=== PATIENT | male | born 1990 | race Caucasian/White ===

== ENCOUNTER 2021-09-04 10:38 | Emergency (ER) | payer OTHER, SELFPAY ==
[2021-09-04 10:54] VITALS: BP 130/64; PULSE 69; RESP 18; O2SAT 95; BMI 30.6
[2021-09-04 10:57] VITALS: BP 130/64; PULSE 82; RESP 18; O2SAT 97
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
[2021-09-04] MEDS: acetaminophen 500 mg Tablet PO (11:31)
[2021-09-04 12:54] VITALS: BP 115/84; PULSE 62; RESP 18; O2SAT 100
== END 2021-09-04 12:55 | disposition home or self-care (01) ==
PROVIDERS: Emergency Provider Emergency Medicine
DX: S00.83XA Contusion of other part of head, initial encounter (principal); V49.49XA Driver injured in collision with other motor vehicles in traffic accident, initial encounter
CPT/HCPCS: 70450; 70486; 99283

== ENCOUNTER 2022-11-09 15:18 | Emergency (ER) | payer SELFPAY ==
[2022-11-09 15:24] VITALS: BP 130/84; PULSE 61; RESP 16; TEMP 36.7; O2SAT 96; BMI 26.9
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
--- NOTE | 2022-11-09 15:37 | ED_ITS ---
HPI - Fall General: Chief Complaint: Fall Stated Complaint: fell from canoe trailer to concrete(head inj) Time Seen by Provider: 11/09/22 15:20 Source: patient Mode of arrival: ambulatory Limitations: no limitations History of Present Illness: Patient is a nice 31-year-old male who presents to ED today for evaluation following a head injury. Patient states he was loading a canoe trailer and was on the top rack when he accidentally fell backwards and landed on his head onto concrete. He sustained a posterior scalp laceration. No LOC. He is complaining of head and neck pain. He arrives in a c-collar. Patient's tetanus is up-to-date. He is not complaining of any visual changes or nausea/vomiting. He denies any other injuries. He has been up and ambulatory since the injury without difficulty. MD complaint: fall Onset (ago): hour(s) Fall from: from height (distance) (6 feet) Fall witnessed: yes, by bystander Place fall occurred: work Loss of consciousness: None Prolonged down time: no Symptoms prior to fall: none Context: tripped/slipped Location of injury: head and neck Severity: moderate Associated symptoms-after fall: Reports headache(s) and neck pain; Denies chest pain, confusion or difficulty walking Review of Systems Eyes: Denies: change in vision, blurry vision, floaters or seeing flashes ENMT: Denies: ear discharge or nasal discharge Card: Denies: chest pain Resp: Denies: dyspnea GI: Denies: nausea or vomiting Musc: Reports: neck pain; Denies: back pain, extremity pain or joint pain Skin/Breast: Reports: other (scalp laceration) Neuro: Reports: headache(s); Denies: numbness in extremities, weakness in extremities, sensory changes, lack of coordination, difficulty walking, dizziness, confusion, behavioral changes, Slurred speech present, difficulty communicating thoughts or seizure-like activity PFS ED PFSH: Medical History No pertinent past medical history Social History Smoking and tobacco status: current every day smoker Alcohol intake: never Substance/Drug Use: never Physical Exam Const: COMMON NORMALS: no acute distress, average body habitus, patient oriented x3, no limitations, healthy appearing, alert and well nourished GENERAL APPEARANCE: cooperative ORIENTATION/CONSCIOUSNESS: Yes awake, Yes oriented to person, Yes oriented to place and Yes oriented to time HENMT: COMMON NORMALS: normocephalic HEAD & SCALP: normocephalic and lacera tion (large posterior scalp laceration (approx 6cm)-bleeding controlled) FACE & SINUS: normal facial exam Eye: GENERAL EYE: appearance normal, both eyes and all related structures and normal light reflex DIRECT OPHTHALMOSCOPY: Yes normal light reflex Neck/C-Spine: CERVICAL SPINE: Yes Cervical spine tenderness OTHER: c-collar was already in place during my assessment; this was not removed for ROM testing Chest: COMMONS NORMALS: normal inspection of the chest and normal palpation of entire chest wall Resp: COMMON NORMALS: normal respiratory effort and clear to auscultation bilaterally AUSCULTATION: clear to auscultation bilaterally Cardio: COMMON NORMALS: regular rate and regular rhythm RATE: regular rate RHYTHM: regular rhythm Back/Pelvis: COMMON NORMALS: thoracic and lumbar spine normal to inspection, no thoracic nor lumbar tenderness and thoraco-lumbar ROM normal Extremity: COMMON NORMALS: normal to inspection GENERAL: Yes normal exam except as noted Neuro: RICKI COMA SCALE: document GCS findings [place] coma scale eye opening: Spontaneous Ricki coma scale verbal response: Orientated [place] coma scale motor response: Obey commands [place] coma scale total score: 15 COMMON NORMALS: patient oriented x3, CN's II-XII intact bilaterally, moves all extremities, no focal motor deficits, no sensory deficits noted and gait normal SENSORIUM/ORIENTATION: Yes alert, Yes oriented to person, Yes oriented to place and Yes oriented to time Skin: TRAUMA: laceration (scalp) Procedures Laceration Laceration 1: Site: scalp Size (cm): 7.0 Description: linear Depth: simple, single layer Local Anesthetic: lidocaine 1% Amount of anesthesia used (mL): 6.0 Pre-repair: wound explored and irrigated extensively Skin layer closed with: other (med) Number of sutures: 12 Course Vital Signs: Vital signs: Vital Signs Temperature 98.0 F 11/09/22 15:24 Pulse Rate 61 11/09/22 15:24 Respiratory Rate 16 11/09/22 15:24 Blood Pressure 130/84 11/09/22 15:24 Pulse Oximetry 96 11/09/22 15:24 Oxygen Delivery Me thod Room Air 11/09/22 15:24 MDM - Fall Medical Decision Making CTs negative. Wound repaired with med as documented. Wound care/infection precautions/return to ED instructions all discussed with patient. Lab Data Radiology Impressions Cervical Spine CT 11/09/22 15:36 IMPRESSION: No acute findings. Head CT 11/09/22 15:36 IMPRESSION: 1. There is a right posterior parietal scalp hematoma with overlying skin lacerations. 2. No evidence for acute intracranial hemorrhage. 3. Paranasal sinusitis and right mastoiditis changes. Discharge Plan Discharge Patient Disposition: Home Clinical Impression: Fall Qualifiers: Encounter type: initial encounter Qualified Code(s): W19.XXXA - Unspecified fall, initial encounter Laceration of scalp Qualifiers: Encounter type: initial encounter Qualified Code(s): S01.01XA - Laceration without foreign body of scalp, initial encounter Minor head injury without loss of consciousness Qualifiers: Encounter type: initial encounter Qualified Code(s): S09.90XA - Unspecified injury of head, initial encounter Condition: Stable Prescriptions: No Action doxycycline hyclate 100 mg capsule 100 mg PO BID Qty: 14 0RF albuterol sulfate [Ventolin HFA] 90 mcg/actuation HFA aerosol inhaler 2 puff inhalation QID Qty: 6.7 0RF prednisone 20 mg tablet 40 mg PO DAILY 5 Days Qty: 10 0RF clotrimazole [Antifungal (clotrimazole)] 1 % cream 1 applic topical BID Qty: 30 0RF fluoxetine 40 mg capsule 40 mg PO QAM sildenafil 100 mg tablet 100 mg PO DAILY MDD 1 tab PRN (Reason: Erectile Dysfunction) ibuprofen 200 mg Tablet 200 mg PO Q4H PRN (Reason: Pain) Discharge Orders: Discharge ED (Routine); Ordered 11/09/22 Ordered By: Kavitha Matos Referrals: Naeem Garcia MD [Primary Care Provider] - Patient Instructions: Scalp Laceration, Head Injury (DC), Staple Care (ED) Activity Restrictions/Additional Instructions: Keep wound/laceration clean with warm soap and water twice daily. Monitor for signs of infection such as redness, swelling, increased pain, or drainage. Please seek medical re-evaluation if these occur. If you received sutures/med today these will need to be removed (unless you were told by the provider that they are absorbable). The provider should have discussed with you the length of time until removal-7 TO 10 DAYS. You may return to the emergency department for this service. Please seek medical re-evaluation for severe headache, repetitive episodes of vomiting, visual changes, altered mental status, seizures, severe tiredness or lethargy, or any other concerns you may have. Coding Level of Care Code ED Marine Railway Operator for Cindy Beard
[2022-11-09] MEDS: morphine 4 mg/mL SDV 1 mL IM (15:55)
[2022-11-09 17:14] VITALS: BP 130/84; PULSE 61; RESP 16; O2SAT 96
== END 2022-11-09 17:16 | disposition home or self-care (01) ==
PROVIDERS: Emergency Provider Physician Assistant; PCP Family Medicine
DX: S01.01XA Laceration without foreign body of scalp, initial encounter (principal); S09.8XXA Other specified injuries of head, initial encounter; F17.210 Nicotine dependence, cigarettes, uncomplicated; W17.89XA Other fall from one level to another, initial encounter
CPT/HCPCS: 12002; 70450; 72125; 96372; 99284; J2270